=== PATIENT | female | born 1955 | race Caucasian/White ===

== ENCOUNTER → 2025-04-02 | Day surgery (SDC) | payer MEDICARE ==
[2025-03-21 14:54] LABS: BASOPHILS % 1.2 % (0.0-1.0); EOSINOPHILS % 7.6 % (0.0-6.0); LYMPHOCYTES % 28.8 % (18.0-39.1); MONOCYTES % 9.4 % (4.4-11.3); NEUTROPHILS % 52.1 % (38.7-80.0); RED CELL DISTRIBUTION WIDTH 14.8 % (11.7-14.4)
[2025-03-21 15:11] LABS: INR 1.01
[2025-03-21 15:18] LABS: EST GLOMERULAR FILTRATION RATE 44.0 ML/MIN (>=60)
[~2025-04-02] MED LIST: ALBUTEROL0.63 MG/3 NEB; BENZONATATE200 MG PO; BREYNA 160-4.10.3 GM INH; BROMPHENIR-PSE118 ML PO; DICLOFENAC PO; FENTANYL CITRATE/PF 100MCG/2 ML INJ ONE; FOLIC ACID0.8 MG PO; LEVOFLOXACIN250 MG PO; LEVOTHYROXINE50 MCG PO; LOSARTAN POTASS25 MG PO; METHOTREXATE2.5 MG PO; PROPOFOL IV EMULSION 10 MG/ML 20 ML VIAL ONE; VIT B12 PO; VIT D3 PO
[2025-04-02] MEDS: LACTATED RINGER'S 1,000 ML ONE (08:32)
[2025-04-02 10:35] VITALS: TEMP 97
[2025-04-02 11:00] VITALS: BP 124/57; PULSE 56; RESP 18; O2SAT 100
== END | disposition home or self-care (01) ==
LOC: OR 07:56
PROVIDERS: ATTEND Internal Medicine Gastroenterology
DX: Z09 Encounter for follow-up examination after completed treatment for conditions other than malignant neoplasm (principal); K63.5 Polyp of colon; K62.1 Rectal polyp; K57.30 Diverticulosis of large intestine without perforation or abscess without bleeding; K64.8 Other hemorrhoids; R19.5 Other fecal abnormalities; Z80.0 Family history of malignant neoplasm of digestive organs; K21.9 Gastro-esophageal reflux disease without esophagitis; E03.9 Hypothyroidism, unspecified; R05.3 Chronic cough; F17.200 Nicotine dependence, unspecified, uncomplicated; M06.9 Rheumatoid arthritis, unspecified; M19.91 Primary osteoarthritis, unspecified site; I83.90 Asymptomatic varicose veins of unspecified lower extremity; I25.2 Old myocardial infarction; Z79.899 Other long term (current) drug therapy; I10 Essential (primary) hypertension; M85.80 Other specified disorders of bone density and structure, unspecified site; F17.210 Nicotine dependence, cigarettes, uncomplicated; Z71.3 Dietary counseling and surveillance; Z68.30 Body mass index [BMI] 30.0-30.9, adult; Z01.810 Encounter for preprocedural cardiovascular examination; Z01.812 Encounter for preprocedural laboratory examination
CPT/HCPCS: 36415; 45385; 80053; 85025; 85610; 85730; 93005; J2704; J3010; J7121; 45378